=== PATIENT | female | born 1960 | race Two or more races ===

== ENCOUNTER 2024-08-01 14:10 | Inpatient (IN) | payer OTHER ==
[2024-08-01] MEDS ORDERED: ACETAMINOPHEN INJECTION 100 ML ONE (14:57)
[2024-08-01] MEDS: ACETAMINOPHEN 1000 MG/100 ML BAG IVPB ONE (15:13)
[2024-08-01 15:16] LABS: ABSOLUTE IMMATURE GRANULOCYTES 0.03 x10^3/uL (0.0-0.031); BASOPHILS # 0.04 x10^3/uL (0.01-0.08); EOSINOPHIL % 0.7 % (0.7-5.8); EOSINOPHILS # 0.04 x10^3/uL (0.04-0.36); HEMATOCRIT 32.9 % (34.1-44.9); HEMOGLOBIN 10.2 g/dL (11.2-15.7); MEAN CELL VOLUME 84.6 fl (79.4-94.8); MEAN PLT VOLUME 10.1 fl (9.4-12.3); MONOCYTE # 0.43 x10^3/uL (0.24-0.86); MONOCYTE % 7.1 % (4.7-12.5); PLATELET COUNT 339 x10^3/uL (182-369); RDW 12.9 % (12.4-16.4)
[2024-08-01 15:28] LABS: INR 1.1 (0.83-1.09); PROTHROMBIN TIME (PATIENT) 12.1 SEC (9.7-13.0)
[2024-08-01 15:39] LABS: POTASSIUM 4.6 mmol/L (3.5-5.1)
[2024-08-01 15:42] LABS: CALCIUM 9.5 mg/dL (8.5-10.1)
[2024-08-01 15:43] LABS: ALBUMIN 3.1 g/dl (3.4-5.0)
[2024-08-01 15:46] LABS: CREATININE 1.7 mg/dL (0.55-1.3)
[2024-08-01 15:48] LABS: BILIRUBIN,TOTAL 0.2 mg/dL (0.2-1)
[2024-08-01 15:56] LABS: ERYTHROCYTE SEDIMENTATION RATE 107 mm/hr (0-30)
[2024-08-01] MEDS ORDERED: PIPERACILLIN/TAZOB 4.5 GM 4.5 GM/100 ML BAG IVPB ONE (17:37)
[2024-08-01] MEDS: PIPERACILLIN/TAZOB 4.5 GM 4.5 GM in DEXTROSE 5%-WATER 100 ML IVPB ONE (17:46)
[2024-08-01] MEDS: VANCOMYCIN 1,000 MG in DEXTROSE 5%-WATER - 250 ML IVPB ONE (19:57)
[2024-08-01] MEDS ORDERED: ACETAMINOPHEN 325 MG TABLET (FP) PO PRN (23:39)
[2024-08-02 01:22] VITALS: BMI 26.5
[2024-08-02] MEDS: PIPERACILLIN/TAZOB 4.5 GM 4.5 GM/100 ML BAG IVPB SCH (02:26)
[2024-08-02] MEDS: INSULIN ASPART SLIDING SCALE (NOVOLOG) 1 VIAL SQ SCH (06:21)
[2024-08-02 08:11] LABS: POTASSIUM 4.3 mmol/L (3.5-5.1)
[2024-08-02 08:13] LABS: CALCIUM 9.8 mg/dL (8.5-10.1)
[2024-08-02 08:16] LABS: CREATININE 1.8 mg/dL (0.55-1.3)
[2024-08-02 08:39] LABS: ABSOLUTE IMMATURE GRANULOCYTES 0.02 x10^3/uL (0.0-0.031); BASOPHILS # 0.07 x10^3/uL (0.01-0.08); EOSINOPHIL % 1.3 % (0.7-5.8); EOSINOPHILS # 0.08 x10^3/uL (0.04-0.36); HEMATOCRIT 33.9 % (34.1-44.9); HEMOGLOBIN 10.3 g/dL (11.2-15.7); MCHC 30.4 g/dl (32.2-35.5); MEAN CELL VOLUME 84.8 fl (79.4-94.8); MEAN PLT VOLUME 11.7 fl (9.4-12.3); MONOCYTE # 0.44 x10^3/uL (0.24-0.86); MONOCYTE % 7.1 % (4.7-12.5); PLATELET COUNT 252 x10^3/uL (182-369); RDW 12.8 % (12.4-16.4)
[2024-08-02] MEDS: levETIRAcetam 500 MG TABLET (FP) PO SCH (09:42)
[2024-08-02] MEDS: amLODIPine BESYLATE 5 MG TABLET (FP) PO SCH (09:42)
[2024-08-02] MEDS: IRON SUCROSE INJECTION 200 MG in SODIUM CHLORIDE 100 ML IVPB ONE (12:22)
[2024-08-02] MEDS: ACETAMINOPHEN 1000 MG/100 ML BAG IVPB PRN (13:55)
[2024-08-02] MEDS: SODIUM CHLORIDE 0.45% 1,000 ML IV SCH (16:59)
[2024-08-02 18:26] LABS: PH,URINE 5.5 (5.0-8.0); URINE APPEARANCE CLEAR; URINE BILIRUBIN NEGATIVE (NEGATIVE); URINE COLOR YELLOW; URINE GLUCOSE (UA) 3+ (NEGATIVE); URINE KETONE NEGATIVE (NEGATIVE); URINE LEUK ESTERASE NEGATIVE (NEGATIVE); URINE NITRITE NEGATIVE (NEGATIVE); URINE PROTEIN NEGATIVE (NEGATIVE); URINE UROBILINOGEN 0.2 mg/dL (0.2-1.0)
[2024-08-02] MEDS ORDERED: VANCOMYCIN 1,000 MG in DEXTROSE 5%-WATER - 250 ML IVPB SCH (20:00)
[2024-08-02] MEDS ORDERED: VANCOMYCIN/WATER FOR INJ (PEG) 1,000 MG/200 ML BAG IVPB SCH (20:00)
[2024-08-02] MEDS: VANCOMYCIN/WATER FOR INJ (PEG) 1,000 MG/200 ML BAG IVPB SCH (22:00)
[2024-08-02] MEDS: ROSUVASTATIN CA 20 MG TABLET PO SCH (22:01)
[2024-08-03] MEDS: PIPERACILLIN/TAZOB 3.375 GM 3.375 GM in DEXTROSE 5%-WATER - 50 ML IVPB SCH (01:51)
[2024-08-03 08:20] LABS: POTASSIUM 4.6 mmol/L (3.5-5.1)
[2024-08-03 08:26] LABS: CALCIUM 9.5 mg/dL (8.5-10.1)
[2024-08-03 08:27] LABS: BLOOD UREA NITROGEN 22.9 mg/dL (7-18)
[2024-08-03 08:30] LABS: CREATININE 1.6 mg/dL (0.55-1.3)
[2024-08-03 08:32] LABS: BILIRUBIN,TOTAL 0.4 mg/dL (0.2-1); TOT PROT 7.9 g/dl (6.4-8.2)
[2024-08-03] MEDS: PIPERACILLIN/TAZOB 4.5 GM 4.5 GM in DEXTROSE 5%-WATER 100 ML IVPB SCH (15:15)
[2024-08-04 08:39] LABS: HEMATOCRIT 33.6 % (34.1-44.9); HEMOGLOBIN 10.4 g/dL (11.2-15.7); MEAN CELL VOLUME 84.2 fl (79.4-94.8); MEAN PLT VOLUME 11.6 fl (9.4-12.3); PLATELET COUNT 303 x10^3/uL (182-369); RDW 12.7 % (12.4-16.4)
[2024-08-04 09:04] LABS: POTASSIUM 4.3 mmol/L (3.5-5.1)
[2024-08-04 09:14] LABS: CALCIUM 9.8 mg/dL (8.5-10.1)
[2024-08-04 09:15] LABS: BLOOD UREA NITROGEN 18.3 mg/dL (7-18)
[2024-08-04 09:18] LABS: CREATININE 1.4 mg/dL (0.55-1.3)
[2024-08-04 09:20] LABS: BILIRUBIN,TOTAL 0.4 mg/dL (0.2-1); TOT PROT 7.8 g/dl (6.4-8.2)
[2024-08-04] MEDS: ENOXAPARIN NA (PORCINE) 40 MG/0.4 ML DISP.SYRIN SQ SCH (11:10)
[2024-08-04] MEDS ORDERED: ACETAMINOPHEN 1000 MG/100 ML BAG IVPB PRN (11:17)
[2024-08-04] MEDS: MUPIROCIN 2% TOPICAL OINTMENT 22 GM TUBE TP SCH (15:32)
[2024-08-05 08:30] LABS: ABSOLUTE IMMATURE GRANULOCYTES 0.02 x10^3/uL (0.0-0.031); BASOPHILS # 0.08 x10^3/uL (0.01-0.08); EOSINOPHIL % 0.9 % (0.7-5.8); EOSINOPHILS # 0.05 x10^3/uL (0.04-0.36); HEMATOCRIT 32.1 % (34.1-44.9); HEMOGLOBIN 9.9 g/dL (11.2-15.7); MCHC 30.8 g/dl (32.2-35.5); MEAN CELL VOLUME 83.8 fl (79.4-94.8); MEAN PLT VOLUME 10.6 fl (9.4-12.3); MONOCYTE # 0.47 x10^3/uL (0.24-0.86); MONOCYTE % 8.2 % (4.7-12.5); PLATELET COUNT 374 x10^3/uL (182-369); RDW 12.8 % (12.4-16.4)
[2024-08-05 08:46] LABS: POTASSIUM 4.2 mmol/L (3.5-5.1)
[2024-08-05 08:55] LABS: CALCIUM 9.6 mg/dL (8.5-10.1)
[2024-08-05 08:56] LABS: BLOOD UREA NITROGEN 19.7 mg/dL (7-18)
[2024-08-05 08:57] LABS: BILIRUBIN,TOTAL 0.4 mg/dL (0.2-1); TOT PROT 7.7 g/dl (6.4-8.2)
[2024-08-05 08:59] LABS: CREATININE 1.4 mg/dL (0.55-1.3)
[2024-08-06] MEDS: INSULIN GLARGINE (LANTUS) 100 UNITS/ML UNITS SQ SCH (06:24)
[2024-08-06 07:33] LABS: HEMATOCRIT 29.4 % (34.1-44.9); HEMOGLOBIN 9.3 g/dL (11.2-15.7); MCHC 31.6 g/dl (32.2-35.5); MEAN CELL VOLUME 83.8 fl (79.4-94.8); MEAN PLT VOLUME 10.6 fl (9.4-12.3); PLATELET COUNT 341 x10^3/uL (182-369); RDW 12.7 % (12.4-16.4)
[2024-08-06 07:37] LABS: POTASSIUM 4.2 mmol/L (3.5-5.1)
[2024-08-06 07:41] LABS: CALCIUM 9.1 mg/dL (8.5-10.1)
[2024-08-06 07:42] LABS: BLOOD UREA NITROGEN 15.8 mg/dL (7-18); MAGNESIUM 2.1 mg/dL (1.8-2.4)
[2024-08-06 07:43] LABS: ALBUMIN 2.8 g/dl (3.4-5.0)
[2024-08-06 07:45] LABS: CREATININE 1.2 mg/dL (0.55-1.3)
[2024-08-06 07:47] LABS: BILIRUBIN,TOTAL 0.5 mg/dL (0.2-1); TOT PROT 7.4 g/dl (6.4-8.2)
[2024-08-06 10:31] VITALS: RESP 18
[2024-08-06] MEDS: ACETAMINOPHEN 1000 MG/100 ML BAG IVPB PRN (11:45)
[2024-08-07 14:59] VITALS: BP 131/56; PULSE 74; TEMP 98.1
== END 2024-08-07 18:37 | disposition home or self-care (01) | DRG 383 ==
LOC: JER 14:10 → JERBED 16:54 → J7W 08-02 01:02
PROVIDERS: ADMIT Family Medicine; ATTEND Family Medicine
DX: L03.115 Cellulitis of right lower limb (principal); E11.52 Type 2 diabetes mellitus with diabetic peripheral angiopathy with gangrene; N17.9 Acute kidney failure, unspecified; E11.40 Type 2 diabetes mellitus with diabetic neuropathy, unspecified; E11.65 Type 2 diabetes mellitus with hyperglycemia; E78.5 Hyperlipidemia, unspecified; I10 Essential (primary) hypertension; M79.604 Pain in right leg; L97.529 Non-pressure chronic ulcer of other part of left foot with unspecified severity; G40.909 Epilepsy, unspecified, not intractable, without status epilepticus; D64.9 Anemia, unspecified
CPT/HCPCS: 36415; 73700-TC-RT; 76775-TC; 80048; 80053; 81003; 82728; 82962; 83036; 83540; 83550; 83735; 84443; 85025; 85027; 85610; 85651; 86140; 86850; 86900; 86901; 87040; 87081; 93922; 93925-TC; 93971-TC; 99285-25; G0480; J0131; J1756